=== PATIENT | male | born 1955 | race Caucasian/White ===

== ENCOUNTER 2017-01-14 09:30 | Emergency (ER) | payer OTHER ==
[~2017-01-14] VITALS: Ht 185.4 cm; Wt 81.7 kg
[2017-01-14 09:39] VITALS: BP 131/78; PULSE 72; RESP 16; TEMP 97.9; O2SAT 97
[2017-01-14] MEDS ORDERED: TETANUS/DIPHTHERIA TOXOID ADULT 0.5 ML VIAL IM ONE (10:00)
[2017-01-14] MEDS ORDERED: POTA10TA2 PO (10:02)
[2017-01-14] MEDS ORDERED: ASPI1TAB69 PO (10:02)
[2017-01-14] MEDS ORDERED: PRED10 PO (10:02)
[2017-01-14] MEDS ORDERED: PAXI20TA PO (10:02)
[2017-01-14] MEDS ORDERED: OXYC-395 PO (10:02)
[2017-01-14] MEDS ORDERED: SYMB80AE INH (10:02)
--- NOTE | 2017-01-14 10:03 | PD ---
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 Duration 1 hour. Severity symptoms is mild. No alleviating factors. PFSH Past Medical History Hx Anticoagulant Therapy: Yes (asa 81mg) Social History Alcohol Use: No Tobacco Use: No Substance Use: No Allergies-Medications (Allergen,Severity, Reaction): Coded Allergies: No Known Allergies (Unverified , 01/14/17) Review of Systems General / Constitutional: No: Fever HENT: No: Headaches Cardiovascular: No: Chest Pain or Discomfort Physical Exam Narrative SKIN: Inspection shows no rash or ulcers. Palpation shows no induration or nodules. Psych: Normal mood and affect. Normal insight and judgment. Left hand: Neurovascularly intact. Normal cap refill and pulse and sensation and strength Patient has a 4 cm laceration over the thenar eminence. It is very shallow. Data Data Last Documented VS Vital Signs Date Time Temp Pulse Resp B/P Pulse Ox O2 Delivery O2 Flow Rate FiO2 01/14/17 09:39 97.9 72 16 131/78 97 MDM Medical Decision Making Medical Screen Exam Complete: Yes Emergency Medical Condition: Yes Medical Record Reviewed: Yes Differential Diagnosis Laceration, contusion, abrasion Narrative Course I have reviewed the patient's electronic medical record. Patient is never been to the ER before Patient is a shallow laceration of the left palm neurovascularly intact I gave him a tetanus booster Procedure note: I cleaned it with normal saline and explored it Is shallow on the edges deeper in the middle I placed 2 5-0 Ethilon sutures in the center. No anesthesia required. They're simple interrupted. Single layer closure. I placed Steri-Strips around the sutures. Suture removal in 7-8 days Diagnosis Primary Impression: Laceration of left hand Qualified Code: S61.412A - Laceration of left hand, initial encounter Additional Instructions: Suture removal in 7 or 8 days Keep left hand clean and dry Med/Other Pt SpecificInfo: Other Disposition: 01 DISCHARGE HOME Condition: Stable Fredis Lozano MD Jan 14, 2017 10:03
== END 2017-01-14 10:18 | disposition home or self-care (01) ==
LOC: PHED 09:30
DX: S61.412A Laceration without foreign body of left hand, initial encounter (principal); W45.8XXA Other foreign body or object entering through skin, initial encounter; Y93.89 Activity, other specified; Z23 Encounter for immunization
CPT/HCPCS: 12001; 90471; 90714